=== PATIENT | female | born 1935 | race Caucasian/White ===

== ENCOUNTER 2017-02-10 17:14 | Emergency (ER) | payer MEDICARE, BC ==
[~2017-02-10 17:14] MED LIST: ALPRAZOLAM PO; ALTACE; ALTACE PO; ANTIVERT50 MG PO; ARIMIDEX1 MG PO; AVANDIA PO; AXID AR75 MG; COMBIVENT INH14.7 GM; COUMADIN; COUMADIN PO; CRESTOR; CRESTOR PO; FOSAMAX; KCL; KCL PO; KEFLEX; KEFLEX PO; LASIX; LASIX PO; LEXAPRO; LEXAPRO PO; LORTAB 7.5-5001 TAB PO; LOZOL; LOZOL PO; NEXIUM; NEXIUM PO; NIFEREX-150150 MG; PRILOSEC20 MG DOB; REGLAN; REMERON; REMERON PO; TICLID250 MG; TOPROL XL; TRENTAL400 MG; TRENTAL400 MG PO; VICODIN 5/500 T1 TAB PO; ZOFRANODT PO; [UNRECOGNIZED DRUG - OTHER]
== END 2017-02-10 17:19 | disposition home or self-care (01) ==
LOC: CFTX 17:14
DX: T81.89XA Other complications of procedures, not elsewhere classified, initial encounter (principal); E11.9 Type 2 diabetes mellitus without complications; I11.0 Hypertensive heart disease with heart failure; I50.9 Heart failure, unspecified; K21.9 Gastro-esophageal reflux disease without esophagitis; F32.9 Major depressive disorder, single episode, unspecified; Z90.710 Acquired absence of both cervix and uterus; Z95.1 Presence of aortocoronary bypass graft; Z98.890 Other specified postprocedural states; Z90.49 Acquired absence of other specified parts of digestive tract
CPT/HCPCS: 99283

== ENCOUNTER 2017-06-03 13:13 | Emergency (ER) | payer MEDICARE, BC ==
--- NOTE | ~2017-06-03 | CR71 ---
[facility] A Service of [facility] RADIOLOGY TEXT RESULTS PATIENT: KALPANA BRADFORD LOCATION: [facility] : 39 UNIT #: [id number] AGE: [address]: Porfirio Hale MD SEX: F ORDER DR: [id number] [facility] [address] [place], [place] [address] [id number] E MR#: [id number] #: [id number] NAME: KALPANA BRADFORD : 1935 SEX: F STUDY DATE/TIME: 06/03/2017 15:42 UNIT: [facility] ROOM: STUDY DESCRIPTION: CR Chest Single View Attending Physician: Porfirio Hale M.D. Ordering Physician: Porfirio Hale M.D. Primary Care Physician: Fang Mcdaniel A.P.R.N. MEDICAL IMAGING REPORT This report is preliminary unless electronic signature is present EXAM Portable chest x-ray. HISTORY Trauma, fell 2 days ago. Short of air, left rib pain, left arm pain left leg pain. TECHNIQUE AP radiograph of the chest is presented. COMPARISON 10/29/2015. 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 No acute-appearing bony abnormality. The heart is upper limits of normal in size to borderline enlarged. The lungs are well inflated. Borderline vascular prominence. Correlate with any clinical indication of borderline vascular congestion. There is no gume pulmonary edema. No pleural effusion, pneumothorax, or suspicious nodule. No indication of pneumonia. Visualized upper abdomen unremarkable. Dictated by... Bryn Staotn M.D. THIS IS AN ELECTRONICALLY VERIFIED REPORT Bryn Staton M.D. at 06/04/2017 6:49 PM HIMANSHU/eric TD: 06/04/2017 10:10 JOB #: [id number] [facility] A Service of [facility] RADIOLOGY TEXT RESULTS PATIENT: KALPANA BRADFORD LOCATION: [facility] : 39 UNIT #: [id number] AGE: [address]: Porfirio Hale MD SEX: F ORDER DR: MEDICAL IMAGING REPORT Page 1 of 1 COPY
== END 2017-06-03 16:55 | disposition home or self-care (01) ==
LOC: CED 13:13
DX: S20.211A Contusion of right front wall of thorax, initial encounter (principal); E11.9 Type 2 diabetes mellitus without complications; I10 Essential (primary) hypertension; Z88.5 Allergy status to narcotic agent; W18.39XA Other fall on same level, initial encounter; Y92.009 Unspecified place in unspecified non-institutional (private) residence as the place of occurrence of the external cause
CPT/HCPCS: 71010; 94010; 99283